=== PATIENT | male | born 1970 | race Caucasian/White ===

== ENCOUNTER 2017-10-19 03:29 | Emergency (ER) | payer MEDICAID ==
--- NOTE | 2017-10-19 03:44 | EDPHY ---
H & P Stated Complaint: AMS Source: Patient, EMS Exam Limitations: Intoxication Time Seen by Provider: 10/19/17 03:32 HPI/ROS: HPI The patient presents with altered mental status. He was found slumped over with decreased respiratory rate and reports that he had injected heroin 15-20 minutes prior to arrival of EMS. He was given Narcan 4 mg IV and became more awake and alert. His respiratory rate is now normal though he is still somewhat sedate. There was some concern that the friend that tereza up the drug put methamphetamine in it as well. REVIEW OF SYSTEMS Constitutional: No fever, no chills. Eyes: No discharge. ENT: No sore throat. Cardiovascular: No chest pain, no palpitations. Respiratory: No cough, no shortness of breath. Gastrointestinal: No abdominal pain, no vomiting. Genitourinary: No hematuria. Musculoskeletal: No back pain. Skin: No rashes. Neurological: No headache. PMHx: Denies Soc Hx: IV drug use, homeless PHYSICAL General Appearance: Drowsy, arouses to loud voice, disheveled Eyes: Pupils equal and round no pallor or injection ENT, Mouth: Mucous membranes moist Respiratory: There are no retractions, lungs are clear to auscultation Cardiovascular: Regular rate and rhythm Gastrointestinal: Abdomen is soft and non-tender, no masses, bowel sounds normal Neurological: A&O, moves all extremities Skin: Warm and dry, no rashes Musculoskeletal: Neck is supple non tender Extremities: symmetrical, full range of motion Psychiatric: Patient is oriented X 3, there is no agitation (Ave Davidson) Constitutional: Initial Vital Signs Temperature (C) 36.7 C 10/19/17 03:30 Heart Rate 78 10/19/17 03:30 Respiratory Rate 16 10/19/17 03:30 Blood Pressure 137/80 H 10/19/17 03:30 O2 Sat (%) 96 10/19/17 03:30 O2 Delivery Mode Room Air Allergies/Adverse Reactions: No Known Allergies Allergy (Unverified 10/19/17 05:55) Home Medications: Medication Instructions Recorded NK [No Known Home Meds] 10/19/17 Medical Decision Making ED Course/Re-evaluation: 700: The patient is signed out to me at change of shift by Dr. Davidson. I rechecked the patient. He was arousable when I entered the room. He answered simple questions. 915: The patient is eating breakfast. (Ayesha Hong) Differential Diagnosis: This is a 47-year-old man with history of IV drug use who presents with somnolence and decreased respiratory rate, brought in by ambulance. In the field he received Narcan 4 mg IV with appropriate response. He is now still fairly sedate. His vital signs are normal. I suspect opiate overdose, I also consider methamphetamine use, alcohol intoxication, benzodiazepine intoxication. Because patient's vital signs are normal and he is breathing normally, I will not give any additional Narcan. The patient was monitored in the emergency department for several hours with slight improvement in his mental status. At 7:00 a.m., he was not suitable for discharge just yet. He is improving, however has not been out of bed. I anticipate he will be discharged later this morning. The case has been signed out to the oncoming provider Dr. Hong. ( Ave Davidson) Departure - Departure Disposition: Home, Routine, Self-Care Clinical Impression: Polysubstance abuse Altered mental status Qualifiers: Altered mental status type: somnolence Qualified Code(s): R40.0 - Somnolence Condition: Good Instructions: Narcotic Abuse (ED) Referrals: [facility],. [Clinic] - As per Instructions
[2017-10-19 10:02] VITALS: BP 107/69
== END 2017-10-19 10:02 | disposition home or self-care (01) ==
DX: R40.0 Somnolence (principal); F19.10 Other psychoactive substance abuse, uncomplicated

== ENCOUNTER 2018-07-09 17:16 | Emergency (ER) | payer MEDICAID ==
--- NOTE | 2018-07-09 17:10 | EDPHY ---
H & P Time Seen by Provider: 07/09/18 17:15 Constitutional: Initial Vital Signs Temperature (C) 36.8 C 07/09/18 17:22 Heart Rate 110 H 07/09/18 17:22 Respiratory Rate 16 07/09/18 17:22 Blood Pressure 137/81 H 07/09/18 17:22 O2 Sat (%) 93 07/09/18 17:22 O2 Delivery Mode Room Air Allergies/Adverse Reactions: No Known Allergies Allergy (Unverified 10/19/17 05:55) Home Medications: Medication Instructions Recorded NK [No Known Home Meds] 10/19/17 Medical Decision Making - Diagnostics Imaging Results: Imaging Impressions Chest X-Ray 07/09/18 17:19 Impression: No evidence for acute cardiopulmonary abnormality. Imaging: I viewed and interpreted images myself ED Course/Re-evaluation: CHIEF COMPLAINT: Heroin overdose HISTORY OF PRESENT ILLNESS: The patient is a 48 y/o male arriving via EMS for a heroin overdose today. The patient shot up an unknown amount of heroin in a bathroom, walked out, and then collapsed. Bystanders performed around 3 minutes of poor CPR. When EMS arrived they noticed that the patient had a weak pulse of 50 with agonal respirations. They gave the patient a total of 2mg IV Narcan, and the patient woke up and began answering questions. The patient is currently tachycardic with a BP of 134 /96. No fever, headache, body aches, lightheadedness, chest pain, heart palpitations, shortness of breath, cough, abdominal pain, urinary or bowel complaints, numbness, paresthesias. REVIEW OF SYSTEMS: A comprehensive 10 system review of systems is otherwise negative aside from elements mentioned in the history of present illness and medical decision making. PHYSICAL EXAM: HR, BP, O2 Sat, RR. Temp noted General Appearance: Diaphoretic, alert, well hydrated, appropriate, and non- toxic appearing. Head: Atraumatic without scalp tenderness or obvious injury Eyes: Pupils equal, round, reactive to light and accommodation, EOMI, no trauma , no injection. Ears: Clear bilaterally, no perforation, normal landmarks Nose: Atraumatic, no rhinorrhea, clear. Throat: There is no erythema or exudates, no lesions, normal tonsils, mucus membranes moist. Neck: Supple, 2+ carotid upstroke, nontender, no lymphadenopathy. Respiratory: No retractions, no distress, no wheezes, and no accessory muscle use. Lungs are clear to auscultation bilaterally. Cardiovascular: Tachycardic, no murmurs, rubs, or gallops. Bilateral carotid, radial, dorsalis pedis, and posterior tibial pulses intact. Good capillary refill all extremities. Gastrointestinal: Abdomen is soft, nontender, non-distended, no masses, no rebound, no guarding, no peritoneal signs. Musculoskeletal: Normal active ROM of all extremities, atraumatic. Neurological: Alert, appropriate, and interactive. The patient has normal DTRs and non-focal cranial nerves, motor, sensory, and cerebellar exam. Skin: No rashes, good turgor, no nodules on palpation. Past medical history: Polysubstance abuse, heroin overdose Past surgical history: Denies Family history: Denies Social history: Transient, single, not employed DIAGNOSTICS/PROCEDURES/CRITICAL CARE TIME: Chest x-ray: Unremarkable DIFFERENTIAL DIAGNOSIS: The differential diagnosis for the patient's altered mental status included but was not limited to hypoglycemia, infectious process, electrolyte abnormality, head injury, neurologic process, anemia, cardiac process, and intoxicants. MEDICAL DECISION MAKING: The patient is a 48 y/o male arriving via EMS for a heroin overdose today. The patient shot up an unknown amount of heroin in a bathroom, walked out, and then collapsed. Bystanders performed around 3 minutes of poor CPR. EMS gave the patient a total of 2mg IV Narcan, and the patient woke up and began answering questions. The patient is currently tachycardic, diaphoretic, and mildly somnolent. Chest x-ray ordered. We will observe this patient as he continues to sober up. 1739: Patient's chest x-ray is unremarkable. We will continue to observe him. 180: Patient continues to sober. He is safe to be discharged to the [facility]. Return precautions provided; patient is comfortable with this plan. Departure - Departure Disposition: Home, Routine, Self-Care Clinical Impression: Heroin overdose Qualifiers: Encounter type: initial encounter Injury intent: accidental or unintentional Qualified Code(s): T40.1X1A - Poisoning by heroin, accidental (unintentional), initial encounter Condition: Good Instructions: Opioid Withdrawal (ED), Opioid Safety (ED) Additional Instructions: 1. Please refrain from abusing heroin. 2. Return to the emergency department immediately for fever, vomiting, confusion , headache, abdominal pain or other worsening of condition. 3. Followup with your primary care physician within 72 hours for reevaluation. Referrals: [facility] [Outside] - As per Instructions Report Scribed for: Tani Tobar Report Scribed by: Bindu Aaron Date of Report: 07/09/18 Time of Report: 17:19
[2018-07-09 18:09] VITALS: BP 140/82
== END 2018-07-09 18:18 | disposition home or self-care (01) ==
LOC: EDUNIT#
DX: T40.1X1A Poisoning by heroin, accidental (unintentional), initial encounter (principal)